=== PATIENT | male | born 1960 | race Caucasian/White ===

== ENCOUNTER 2021-03-23 07:11 | Day surgery (SDC) | payer BC ==
[2021-03-22 15:01] VITALS: BMI 36.9
[~2021-03-23 07:11] MED LIST: EPINEPHrine 0.3 MG in Ophthalmic Irrigation Solution 500 ML IRR SCH; Fentanyl 100 MCG/2 ML VIAL ONE; Midazolam HCl 2 mg/2 ml Vial ONE
[2021-03-23] MEDS ORDERED: Cyclopentolate 1% Opth Drop 2 ML BOT ONE (07:31)
[2021-03-23] MEDS ORDERED: Phenylephrine 2.5% Ophth Soln 5 ML BOT ONE (07:31)
[2021-03-23] MEDS ORDERED: CEFAZOLIN 1 GM VIAL ONE (08:57)
[2021-03-23] MEDS ORDERED: Maxitrol 0.1% Opth Oint 3.5 GM TUBE ONE (08:57)
[2021-03-23] MEDS ORDERED: Bupivacaine PF 0.75% SDV 10 ML ONE (08:57)
[2021-03-23] MEDS ORDERED: PROPOFOL 200 MG/20 ML VIAL ONE (08:57)
[2021-03-23] MEDS ORDERED: Lidocaine 4% PF 5 ML AMP ONE (08:57)
[2021-03-23] MEDS ORDERED: Lidocaine 1% PF 5 ML VIAL ONE (08:57)
[2021-03-23] MEDS ORDERED: Triamcinolone 40 MG/ML VIAL ONE (08:57)
[2021-03-23] MEDS ORDERED: Fentanyl 100 MCG/2 ML VIAL ONE (09:42)
[2021-03-23] MEDS ORDERED: Ondansetron ODT 4 MG TAB ONE (09:53)
== END 2021-03-23 10:09 | disposition home or self-care (01) ==
LOC: SDC 07:11
PROVIDERS: ATTEND Ophthalmology Retina Specialist
PROC: 08T43ZZ Resection of Right Vitreous, Percutaneous Approach (ICD-10-PCS; principal; 2021-03-23)
PROC: 08QE3ZZ Repair Right Retina, Percutaneous Approach (ICD-10-PCS; principal; 2021-03-23)
DX: H43.11 Vitreous hemorrhage, right eye (principal); E11.3591 Type 2 diabetes mellitus with proliferative diabetic retinopathy without macular edema, right eye; I10 Essential (primary) hypertension; E78.5 Hyperlipidemia, unspecified; I25.10 Atherosclerotic heart disease of native coronary artery without angina pectoris; Z79.4 Long term (current) use of insulin; Z79.899 Other long term (current) drug therapy; Z88.8 Allergy status to other drugs, medicaments and biological substances; Z98.41 Cataract extraction status, right eye; Z98.42 Cataract extraction status, left eye; Z96.1 Presence of intraocular lens
CPT/HCPCS: 36416; J0171; J0690; J2250; J2704; J3010; J3301; J3490; Q0162